=== PATIENT | male | born 1995 | race African-American/Black ===

== ENCOUNTER 2017-05-22 15:03 | Outpatient (CLI) | payer MEDICAID, OTHER ==
--- NOTE | 2017-05-22 19:13 | Diagnostic Imaging Report ---
IMAN GUZMAN (GEOLOGICAL SURVEY FIELD ASSISTANT) [facility] [id number] [facility].[address] [address] Report Submission Date: May 22, 2017 3:36:14 PM CORE MANAGER Patient Study Name: ZAIRE ROLON Date: May 22, 2017 3:13:13 PM CORE MANAGER Modality Type: DX Gender: M Description: CHEST : 89 Institution: [facility] Physician: IMAN GUZMAN (GEOLOGICAL SURVEY FIELD ASSISTANT) Examination: PA and lateral chest. History: CXR, COUGH X1 WEEK, POSSIBLE ASPIRATION PNEUMONIA, PT UNABLE TO FOLLOW BREATHING INSTRUCTIONS (Hx) Comparison exam: None provided. Findings: PA lateral chest demonstrate a hypoventilated inspiratory effort resolving and crowding of the cardiac and mediastinal silhouette. Diffuse parenchymal haziness involving the right lower lung. No blunting of the costophrenic margins. Osseous structures are appropriate for age. Impression: Large right lower lung infiltrate. No gross effusion. Electronically signed on May 22, 2017 3:36:14 PM CORE MANAGER by: Roe FRAZIER
== END 2017-05-22 15:04 ==
LOC: RAD 15:03
PROVIDERS: ATTEND Nurse Practitioner Family
DX: R05 Cough (principal); Z91.89 Other specified personal risk factors, not elsewhere classified
CPT/HCPCS: 71046